=== PATIENT | male | born 2000 | race Hispanic/Latino ===

== ENCOUNTER 2022-04-29 17:07 | Emergency (ER) | payer MEDICAID ==
[~2022-04-29] VITALS: Ht 165.1 cm; Wt 81.6 kg
[2022-04-29 17:44] LABS: BASOPHILS % (AUTO) 0.8 % (0.0-5.0); EOSINOPHILS % (AUTO) 1.7 % (0.0-8.0); HEMATOCRIT 42.9 % (42-54); MEAN CORPUSCULAR HEMOGLOBIN 28.7 pg (27.0-33.0); MEAN CORPUSCULAR HGB CONC 34.3 g/dL (32.0-36.0); MEAN CORPUSCULAR VOLUME 83.8 fL (80-100); MONOCYTES % (AUTO) 10.5 % (3.0-13.0); NEUTROPHILS % (AUTO) 53.4 % (40.0-77.0); PLATELET COUNT (AUTO) 286 K/uL (130-400); RED BLOOD CELL COUNT(AUTO) 5.12 MIL/uL (4.50-6.20); RED CELL DISTRIBUTION WIDTH 12.9 % (11.0-15.5)
[2022-04-29 17:53] LABS: CREATININE 1.1 mg/dL (0.5-1.5); POTASSIUM 3.7 mmol/L (3.5-5.1)
[2022-04-29 17:59] LABS: TOTAL PROTEIN, SERUM 7.5 g/dL (6.0-8.3)
[2022-04-29] MEDS ORDERED: METH4TAB3 PO (19:28)
[2022-04-29] MEDS ORDERED: SOLU-MEDROL 125MG VIAL IVP ONE (19:30)
[2022-04-29 19:33] VITALS: BP 126/68
== END 2022-04-29 20:03 | disposition home or self-care (01) ==
LOC: EDH 17:07
DX: M94.0 Chondrocostal junction syndrome [Tietze] (principal); F32.A Depression, unspecified
CPT/HCPCS: 99285; 96374; 71045; 84484; 80053; 85025; 36415; 93005; J2930

== ENCOUNTER 2022-05-12 17:57 | Emergency (ER) | payer MEDICAID ==
[~2022-05-12] VITALS: Ht 165.1 cm; Wt 85.3 kg
[~2022-05-12 17:57] MED LIST: METH4TAB3 PO
[2022-05-12] MEDS ORDERED: D-ME118S47 PO (19:06)
[2022-05-12] MEDS ORDERED: NIRM1TAB PO (19:06)
[2022-05-12] MEDS ORDERED: BENZ-39 PO (19:06)
[2022-05-12 19:19] VITALS: BP 136/65
== END 2022-05-12 19:20 | disposition home or self-care (01) ==
LOC: EDH 17:57
DX: U07.1 COVID-19 (principal); B34.9 Viral infection, unspecified
CPT/HCPCS: 99283; 87635; 87880; 87804 ×2; C9803